=== PATIENT | male | born 1940 | race Caucasian/White ===

== ENCOUNTER 2017-05-19 11:01 | Emergency (ER) | payer MEDICARE, OTHER ==
[2017-05-19 11:17] VITALS: BP 136/69
[2017-05-19] MEDS ORDERED: Bacitracin Oint 1 GM U/D Packet TOP ONE (11:21)
--- NOTE | 2017-05-19 11:35 | EDM.PDOC ---
ED HPI GENERAL MEDICAL PROBLEM - General Chief Complaint: Bite:Animal, Insect Stated Complaint: WOOD TICK ON BACK Time Seen by Provider: 05/19/17 11:35 Source of Information: Reports: Patient History Limitations: Reports: No Limitations - History of Present Illness INITIAL COMMENTS - FREE TEXT/NARRATIVE: pt has a large woodtick on the rt side of his chest. Onset: Gradual Duration: Day(s): Location: Reports: Chest Associated Symptoms: Reports: No Other Symptoms - Related Data Allergies Allergy/AdvReac Type Severity Reaction Status Date / Time lisinopril Allergy Cough Verified 12/31/16 11:29 Home Meds: Home Meds Allopurinol [Zyloprim] 05/19/17 [History] Carvedilol [Carvedilol] 05/19/17 [History] Finasteride [Finasteride] 05/19/17 [History] Gabapentin [Neurontin] 05/19/17 [History] Hydrochlorothiazide [Hydrochlorothiazide] 05/19/17 [History] Losartan [Cozaar] 05/19/17 [History] Pravastatin [Pravachol] 05/19/17 [History] Past Medical History Cardiovascular History: Reports: Automatic Implantable Cardioverter Defibrillators, [place] Respiratory History: Reports: TB Neurological History: Reports: Neuropathy, Peripheral Dermatologic History: Reports: Benign Melanoma - Past Surgical History Cardiovascular Surgical History: Reports: Coronary Artery Bypass Musculoskeletal Surgical History: Reports: Knee Replacement, Shoulder Surgery Dermatological Surgical History: Reports: Skin Biopsy Social & Family History - Tobacco Use Smoking Status *Q: Never Smoker ED ROS GENERAL - Review of Systems Review Of Systems: See Below Constitutional: Reports: No Symptoms HEENT: Reports: No Symptoms Respiratory: Reports: Other (pt has a tick stuck on the left side of his chest. ) Cardiovascular: Reports: No Symptoms Endocrine: Reports: No Symptoms GI/Abdominal: Reports: No Symptoms : Reports: No Symptoms Musculoskeletal: Reports: No Symptoms Skin: Reports: No Symptoms, Other (pt has a large regular wood tick stuck on the left side of his chest. When this was removed there was pus coming from the site. ) Neurological: Reports: No Symptoms Psychiatric: Reports: No Symptoms ED EXAM, ANIMAL BITE - Physical Exam Exam: See Below Text/Narrative:: p has a wood tick tick stuck on the let side of the chest. Exam Limited By: No Limitations General Appearance: Alert, Anxious Ears: Normal TMs Nose: Normal Inspection Throat/Mouth: Normal Inspection Head: Atraumatic Neck: Normal Inspection Respiratory/Chest: Other ( wod tick stuck on the left side of the chest. ) Cardiovascular: Regular Rate, Rhythm Course - Vital Signs Last Recorded V/S: Last Vital Signs Temp 35.2 C 05/19/17 11:29 Pulse 60 05/19/17 11:29 Resp 18 05/19/17 11:29 BP 136/69 05/19/17 11:29 Pulse Ox 94 L 05/19/17 11:29 - Orders/Labs/Meds Meds: Medications Discontinued Medications Generic Name Dose Route Start Last Admin Trade Name Freq PRN Reason Stop Dose Admin Bacitracin 1 dose 05/19/17 11:21 Bacitracin Oint 1 Gm TOP 05/19/17 11:22 ONETIME ONE - Re-Assessments/Exams Free Text/Narrative Re-Assessment/Exam: 05/19/17 11:43 tick was removed without difficulty. There was definite pus coming from the site where it was removed. y Departure - Departure Time of Disposition: 11:33 Disposition: Home, Self-Care 01 Condition: Fair Clinical Impression: Wood tick bite, Cellulitis - Discharge Information Referrals: Brianna Jimenez MD [Primary Care Provider] - Forms: ED Department Discharge Care Plan Goals: moist warm packs to the site tid, doxycline 100mg bid.
== END 2017-05-19 11:46 | disposition home or self-care (01) ==
LOC: JP.ED 11:01
DX: S20.361A Insect bite (nonvenomous) of right front wall of thorax, initial encounter (principal); L03.313 Cellulitis of chest wall; I25.2 Old myocardial infarction; Z88.8 Allergy status to other drugs, medicaments and biological substances; Z79.899 Other long term (current) drug therapy; Z95.1 Presence of aortocoronary bypass graft; Z96.659 Presence of unspecified artificial knee joint; W57.XXXA Bitten or stung by nonvenomous insect and other nonvenomous arthropods, initial encounter
CPT/HCPCS: 99283

== ENCOUNTER 2023-06-15 17:46 | Emergency (ER) | payer OTHER, MEDICARE ==
[2023-06-15] MEDS ORDERED: Bacitracin Oint 1 GM U/D Packet TOP ONE ×2 (21:42→22:11)
[2023-06-15] MEDS ORDERED: Lidocaine 4% 1 each Patch TOP PRN (21:44)
[2023-06-15 22:20] VITALS: BP 140/63; PULSE 69
== END 2023-06-15 22:28 | disposition home or self-care (01) ==
LOC: JP.ED 17:46
DX: S22.42XA Multiple fractures of ribs, left side, initial encounter for closed fracture (principal); S20.229A Contusion of unspecified back wall of thorax, initial encounter; S40.022A Contusion of left upper arm, initial encounter; S40.021A Contusion of right upper arm, initial encounter; I25.2 Old myocardial infarction; Z95.0 Presence of cardiac pacemaker; Z79.899 Other long term (current) drug therapy; Z88.8 Allergy status to other drugs, medicaments and biological substances; V49.50XA Passenger injured in collision with unspecified motor vehicles in traffic accident, initial encounter; Y92.410 Unspecified street and highway as the place of occurrence of the external cause
CPT/HCPCS: 71250; 74176; 99283; 99284